=== PATIENT | female | born 1980 | race Caucasian/White ===

== ENCOUNTER → 2019-10-13 11:03 | Outpatient (CLI) | payer OTHER, SELFPAY ==
--- NOTE | ~2019-10-13 | MM_ITS ---
EXAMINATION: MM screening martha BI w riddhi HISTORY: Screening mammogram TECHNIQUE: Bilateral rotated lateral cc views. Craniocaudal and mediolateral oblique 3-D tomosynthesi s images were obtained and synthetic 2-D images were generated. CAD analysis was submitted and interp reted. COMPARISON: 09/11/2018 bilateral digital screening mammogram BREAST PARENCHYMAL COMPOSITION: There are scattered areas of fibroglandular density. FINDINGS: There is no evidence of suspicious mass, calcification, or architectural distortion to sugg est malignancy in either breast. There has been no suspicious interval change. IMPRESSION: 1. No mammographic evidence of malignancy. 2. Recommend routine screening mammography in one year. BI-RADS Category 1: Negative Reviewed, dictated and finalized at location A. ING AIDE
== END ==
PROVIDERS: PCP Obstetrics & Gynecology; Visit Provider Obstetrics & Gynecology
DX: Z12.31 Encounter for screening mammogram for malignant neoplasm of breast (principal)
CPT/HCPCS: 77063; 77067

== ENCOUNTER → 2021-02-21 10:28 | Outpatient (CLI) | payer OTHER, SELFPAY ==
--- NOTE | ~2021-02-21 | MM_ITS ---
EXAMINATION: MM screening martha BI w riddhi HISTORY: Screening mammogram TECHNIQUE: Craniocaudal and mediolateral oblique 3-D tomosynthesis images were obtained and synthetic 2-D images were generated. Bilateral rotated lateral cc views. CAD analysis was submitted and interp reted. COMPARISON: 10/13/2019, 09/11/2018 bilateral digital screening mammogram examinations BREAST PARENCHYMAL COMPOSITION: There are scattered areas of fibroglandular density. FINDINGS: There is no evidence of suspicious mass, calcification, or architectural distortion to sugg est malignancy in either breast. There has been no suspicious interval change. IMPRESSION: 1. No mammographic evidence of malignancy. 2. Recommend routine screening mammography in one year. BI-RADS Category 1: Negative Reviewed, dictated and finalized at location A.
== END ==
PROVIDERS: PCP Family Medicine; Visit Provider Obstetrics & Gynecology
DX: Z12.31 Encounter for screening mammogram for malignant neoplasm of breast (principal)
CPT/HCPCS: 77063; 77067

== ENCOUNTER → 2022-08-06 08:42 | Outpatient (CLI) | payer OTHER, SELFPAY ==
--- NOTE | ~2022-08-06 | MMUS_ITS ---
EXAMINATION: MM diagnostic martha RT w riddhi, US breast RT limited HISTORY: Right breast asymmetry on screening mammogram TECHNIQUE: Additional 3-D tomosynthesis images of the right breast were performed and synthetic 2-D i mages were generated. CAD analysis was submitted and interpreted. High resolution limited right breas t ultrasound was performed. COMPARISON: 07/03/2022, 02/21/2021, 10/13/2019, 09/11/2018 FINDINGS: MAMMOGRAPHIC FINDINGS: There is a return to baseline fibroglandular appearance with spot compression of the right breast in the area questioned on screening mammogram. ULTRASOUND: There is no evidence of focal abnormal solid or cystic mass in the vicinity of the mammographic findi ng in question. IMPRESSION: 1. No mammographic or sonographic evidence of malignancy. 2. Recommend routine screening mammography in one year. BI-RADS Category 1: Negative Reviewed, dictated and finalized at location A. CONSULTING DIRECTOR IMPRESSION: 1. No mammographic or sonographic evidence of malignancy. 2. Recommend routine screening mammography in one year. BI-RADS Category 1: Negative
== END ==
PROVIDERS: PCP Family Medicine
DX: R92.8 Other abnormal and inconclusive findings on diagnostic imaging of breast (principal); R92.2 Inconclusive mammogram
CPT/HCPCS: 76642; 77061; 77065; G0279

== ENCOUNTER 2023-07-01 07:00 | Outpatient (NON) | payer OTHER, SELFPAY | END 2023-07-01 07:01 | disposition home or self-care (01) | LOC: ANHLAB 07-02 14:39 | PROVIDERS: PCP Family Medicine; Visit Provider Nurse Practitioner | DX: D48.5 Neoplasm of uncertain behavior of skin (principal) | CPT/HCPCS: 88305 ==

== ENCOUNTER → 2023-07-08 12:11 | Outpatient (CLI) | payer OTHER, SELFPAY ==
--- NOTE | ~2023-07-08 | MM_ITS ---
EXAMINATION: MM screening martha BI w riddhi HISTORY: Screening TECHNIQUE: Craniocaudal and mediolateral oblique 3-D tomosynthesis images were obtained and synthetic 2-D images were generated. CAD analysis was submitted and interpreted. COMPARISON: Comparison to multiple prior studies sequentially, with oldest reviewed study dated 09/11. BREAST PARENCHYMAL COMPOSITION: There are scattered areas of fibroglandular density. FINDINGS: There is no evidence of suspicious mass, calcification, or architectural distortion to sugg est malignancy in either breast. There has been no suspicious interval change. IMPRESSION: 1. No mammographic evidence of malignancy. 2. Recommend routine screening mammography in one year. BI-RADS Category 1: Negative Reviewed, dictated and finalized at location A. OFF WORKER
== END ==
PROVIDERS: PCP Family Medicine; Visit Provider Obstetrics & Gynecology
DX: Z12.31 Encounter for screening mammogram for malignant neoplasm of breast (principal)
CPT/HCPCS: 77063; 77067

== ENCOUNTER 2024-07-13 11:57 | Outpatient (CLI) | payer OTHER, SELFPAY ==
--- NOTE | ~2024-07-13 | MM_ITS ---
EXAMINATION: MM screening martha BI w riddhi HISTORY: Screening mammogram TECHNIQUE: Craniocaudal and mediolateral oblique 3-D tomosynthesis images were obtained and synthetic 2-D images were generated. CAD analysis was submitted and interpreted. COMPARISON: 07/08/2023, 07/03/2022, 02/21/2021, 10/13/2019 BREAST PARENCHYMAL COMPOSITION:Not Dense. There are scattered areas of fibroglandular density. FINDINGS: No suspicious mass, calcification, or architectural distortion are identified in either stephanie ast to suggest malignancy. There has been no suspicious interval change. IMPRESSION: No mammographic evidence of malignancy. Recommend routine screening mammography in one year. BI-RADS Category 1: Negative Reviewed, dictated and finalized at location . COORDINATOR
== END 2024-07-13 11:58 | disposition home or self-care (01) ==
LOC: MICIMG 11:58
PROVIDERS: PCP Family Medicine; Visit Provider Obstetrics & Gynecology
DX: Z12.31 Encounter for screening mammogram for malignant neoplasm of breast (principal)
CPT/HCPCS: 77063; 77067

== ENCOUNTER 2024-08-28 09:29 | Emergency (ER) | payer OTHER, SELFPAY ==
[2024-08-28 09:52] VITALS: BP 99/63; PULSE 86; RESP 16; TEMP 36.4; O2SAT 99
--- NOTE | 2024-08-28 10:45 | ED_ITS ---
HPI - Skin/Abscess/Foreign Bdy General Chief complaint: Skin/Abscess/Foreign Body Stated complaint: rash/hives Time Seen by Provider: 08/28/24 10:18 Source: patient and RN notes reviewed Mode of arrival: ambulatory Limitations: no limitations History of Present Illness HPI narrative: Patient presents today complaining of severely pruritic rash to the bilateral forearms, dorsums of the feet, bilateral flanks, groin. She has tried hydrocortisone cream with some mild relief. She finished course of Bactrim this morning for will insist. This is the 1st time she has taking this medication. Denies facial swelling, shortness of breath, difficulty swallowing. Related Data Home Medications ?Medication ?Instructions ?Recorded ?Confirmed ?Last Taken ?Type fluticasone propionate 50 1 spray intranasal DAILY 03/19/22 08/28/24 Unknown History mcg/actuation nasal spray,suspension chlorthalidone 25 mg tablet 25 mg PO DAILY 04/09/23 08/28/24 Unknown History losartan 100 mg tablet 100 mg PO DAILY 04/09/23 08/28/24 Unknown History Allergies Allergy/AdvReac Type Severity Reaction Status Date / Time No Known Allergies Allergy Unknown Verified 08/28/24 09:43 Review of Systems Review of Systems: CONSTITUTIONAL: Denies body aches, fever, chills, or sweats. EYES: Denies visual changes, redness, or discharge. ENT: Denies rhinorrhea, congestion, sore throat, or otalgia. CARDIOVASCULAR: Denies chest pain, palpitations, or edema. RESPIRATORY: Denies cough or dyspnea. GASTROINTESTINAL: Denies abdominal pain, nausea, vomiting, or diarrhea. GENITOURINARY: Denies dysuria or hematuria. SKIN: Pruritic rash MUSCULOSKELETAL: Denies back pain, joint pain, or myalgia. NEUROLOGIC: Denies headache, numbness, tingling, or weakness. PSYCH: Denies depression or anxiety. [facility] Past Medical History Medical History Hypertension (~2021) rx meds Screening mammogram, encounter for Headache Gestational hypertension Surgical History Surgical History History of tonsillectomy Delivery by section History of gynecological procedure (02/18/20) mirena iud insertion Family History Family History Mother Family history of malignant melanoma Social History Social History Smoking status: Never smoker Alcohol intake: never Substance use: never Substance use type: does not use Lack of Transportation: No Lack of Food: Never True Current Housing: I Have Housing Concerned About Future Housing: No Difficulty Paying Gas/Electric Bills: No Difficulty Paying for Meds: No Currently Unemployed: No Education: Master's Degree or Higher Difficulty w/ Childcare or Family Care: No Living arrangements: other Additional living arrangements comments: Occupation/Education: occupation Additional occupation/education comments: accounts payable Gender identity (if verbalized by the patient): Female Sexual Orientation (if Verbalized by the Patient): Straight or Heterosexual Comments At time of signature, I have reviewed and agree with nursing past medical, surgical, social and family history unless otherwise noted. Please see nursing chart for further information. There is no relevant family history pertinent to the presenting complaint Exam Narrative: GENERAL: Well-appearing, well-nourished, and in no acute distress. HEAD: Normocephalic, atraumatic. EYES: EOMI. No redness or drainage. Conjunctivae normal. ENT: Mucous membranes pink and moist. No facial swelling noted. NECK: Normal AROM. CHEST: No respiratory distress. EXTREMITIES: Normal range of motion. No edema. SKIN: Warm, dry. Capillary refill normal. Normal skin turgor. + coalesced tiny urticarial lesions spread over the bilateral forearms, flanks, feet, groin. No induration, drainage, pustule NEURO: No focal deficits. Alert and oriented x3. Gait steady. PSYCH: Normal affect. No signs of depression or anxiety. Course Course Level of Care: Express Care Visit Vital Signs Vital signs: Vital Signs Temperature 97.6 F 08/28/24 09:52 Pulse Rate 86 08/28/24 09:52 Respiratory Rate 16 08/28/24 09:52 Blood Pressure 99/63 L 08/28/24 09:52 Pulse Oximetry 99 08/28/24 09:52 Temperature 97.6 F 08/28/24 09:52 Pulse Rate 86 08/28/24 09:52 Respiratory Rate 16 08/28/24 09:52 Blood Pressure 99/63 L 08/28/24 09:52 Pulse Oximetry 99 08/28/24 09:52 Reviewed MDM - Skin/Abscess/Foreign Bdy MDM Narrative Medical decision making narrative: Patient will be treated with prednisone for pruritic rash, antibiotic rash versus contact dermatitis. Differential Diagnosis Differential diagnosis: Likely viral exanthem, dermatophytosis, urticaria, cellulitis, eczema, impetigo and contact dermatitis Critical Care Time Critical Care Time Critical Care Time: No Discharge Plan Discharge Clinical Impression: Dermatitis Patient Disposition: Home, Self-Care Condition: Stable Instructions: Contact Dermatitis (ED) Additional Instructions: Please take the prednisone as directed. Start an antihistamine such as Zyrtec, Claritin, or Flor for itching. Follow-up with your PCP in 5 days if symptoms are not improving. Patient Language: Tuvaluan Prescriptions: New prednisone 20 mg tablet 40 mg PO DAILY 5 Days Qty: 10 0RF No Action losartan 100 mg tablet 100 mg PO DAILY chlorthalidone 25 mg tablet 25 mg PO DAILY sulfamethoxazole-trimethoprim [Bactrim DS] 800-160 mg tablet 1 tablet PO Q12H Qty: 20 0RF fluticasone propionate 50 mcg/actuation spray,suspension 1 spray intranasal DAILY Rx Instructions: administer into each nostril Follow-up/Referrals: Harms,Jacob Castro M.D. [Primary Care Provider] - Time of Disposition: 10:49
== END 2024-08-28 10:51 | disposition home or self-care (01) ==
PROVIDERS: Emergency Provider Nurse Practitioner; PCP Family Medicine
DX: L30.9 Dermatitis, unspecified (principal); I10 Essential (primary) hypertension
CPT/HCPCS: 99213; G0463

== ENCOUNTER 2025-07-20 10:07 | Outpatient (CLI) | payer OTHER, SELFPAY ==
--- NOTE | ~2025-07-20 | MM_ITS ---
EXAMINATION: screening [facility] BI w riddhi INDICATION: Asymptomatic, referred for screening mammogram COMPARISON: 07/13/2024 through 09/11/2018 TECHNIQUE: Digital Breast Tomosynthesis CC, MLO views of Both breasts were obtained with computer-aided detection to assist in interpretation of the study. FINDINGS: There are scattered areas of fibroglandular density. There is an asymmetry seen on the MLO view in the Inferior left breast at middle third. Elsewhere, there are no mammographic features of malignancy. IMPRESSION: 1. Left breast Asymmetry. 2. No evidence of malignancy in the Right breast. RECOMMENDATION: Left breast Diagnostic mammogram with true lateral, appropriate spot compression views and an ultrasound if needed. BI-RADS Category 0: Incomplete: Needs additional imaging evaluation. Reviewed, dictated and finalized at location B. CAGER IMPRESSION: 1. Left breast Asymmetry. 2. No evidence of malignancy in the Right breast. RECOMMENDATION: Left breast Diagnostic mammogram with true lateral, appropriate spot compressio n views and an ultrasound if needed. BI-RADS Category 0: Incomplete: Needs additional imaging evaluation.
== END 2025-07-20 10:08 | disposition home or self-care (01) ==
LOC: MICIMG 10:08
PROVIDERS: PCP Family Medicine; Visit Provider Obstetrics & Gynecology
DX: Z12.31 Encounter for screening mammogram for malignant neoplasm of breast (principal); R92.8 Other abnormal and inconclusive findings on diagnostic imaging of breast
CPT/HCPCS: 77063; 77067

== ENCOUNTER 2025-08-29 12:59 | Outpatient (CLI) | payer OTHER, SELFPAY ==
--- NOTE | ~2025-08-29 | US_ITS ---
EXAMINATION: US breast LT limited HISTORY: Additional imaging TECHNIQUE: Craniocaudal and mediolateral oblique 3-D tomosynthesis images were obtained and synthetic 2-D images were generated. CAD analysis was submitted and interpreted. Grayscale sonography over the area(s) of interest with color Doppler if there is a finding. COMPARISON: July 20 and other prior studies. BREAST PARENCHYMAL COMPOSITION: Dense: The breasts are heterogeneously dense MAMMOGRAM FINDINGS: An asymmetry persists inferiorly on the ML view. It is estimated to be at 6:00 or perhaps the lower inner quadrant. There are no suspicious calcifications. No unexplained architectural distortion is seen. There are no skin or nipple abnormalities identified. There is no adenopathy seen on the images submitted. ULTRASOUND FINDINGS: Sonography through the 9:00 position demonstrates a cluster of small cysts versus 2 adjacent bilobed cysts. These account for the mammographic appearance. One structure with thick septations is considered less likely. The maximum conglomerate measurement is 7 mm. IMPRESSION: A group of cysts versus a complex cyst with solid components account for the mammographic finding. Six-month follow-up left mammogram and left breast ultrasound are recommended. BI-RADS 3 - Probably benign - short-term follow-up is recommended. Reviewed, dictated and finalized at location A. ODS ANALYST DATA PROCESSING IMPRESSION: A group of cysts versus a complex cyst with solid components account for the ma mmographic finding. Six-month follow-up left mammogram and left breast ultrasou nd are recommended. BI-RADS 3 - Probably benign - short-term follow-up is recommended.
--- OUTSIDE RECORDS SUMMARY | 2025-08-29 13:11 | XMS_ITS | Clinical Summary ---
Author Organization [facility] Address [address] [place] [address] Care Team Providers Care Energy Manager Name Role Phone Jacob Matthews MD Unavailable [phone] Alondra Rothman MD Primary Care Provider Source Comments [facility],non-owned Affiliates and Associated Physician Practices is amultiple site organization consisting of ambulatory clinics and hospital sitesin [place], [place], [place]. This disclosure is being madepursuant to the Care Everywhere program and may not contain all information available regarding this patient. 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 05/10/2014 Chronic hypertension complic ating or reason for care during 05/10/2014 H/O pre-eclampsia in prior , currently 05/10/2014 Overview (05/10/2014): sPreE in G1 with IOL at 34w5d Complicated by HELLP and pulmonary edema 24 hour urine collected and patient started on ASA at 10w this Abnormal Pap smear of cervix 05/10/2014 Overview (05/10/2014): LSIL 2009 with colpo ALISE 1 ASCUS 11/07/10 NEG pap 04/30/13 Social History Tobacco Use Types Packs/Day Years Used Date Smoking Tobacco: Never Assessed Comments No Sex and Gender Information Value Date Recorded Sex Assigned at Not on file Legal 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 Gender Identity Not on file Sexual Orientation Not on file Plan of Treatment Health Maintenance Due Date Last Done Comments COLOGUARD (AGES 45-75) - COL ON CA SCREENING 1978 COLON MONITORING 1978 COLONOSCOPY - COLON CA SCREENING 1978 CT COLONOGRAPHY - COLON CA SCREENING 1978 Colorectal Cancer Screening 1978 FIT - COLON CA SCREENING 1978 FLEX SIG - COLON CA SCREENING 1978 LIPID TESTING 1978 MAMMOGRAM 1978 HIV SCREENING 1993 HEPATITIS C SCREENING 01/10/1996 DTAP/TDAP/TD VACCINES (1 - Tdap) 1997 HEPATITIS B VACCINE (1 of 3 - 19+ 3-dose series) 1997 PAP SMEAR 1999 DEPRESSION SCREENING 09/01/2024 COVID-19 VACCINE (1 - 2024-2 6 season) 2025 INFLUENZA VACCINE (#1) 2025 ZOSTER VACCINE (1 of 2) 01/15/2028 HIB VACCINE Aged Out No longer eligi ble based on patient's age to complete this topic HPV VACCINE Aged Out No longer eligi ble based on patient's age to complete this topic MENINGOCOCCAL (Group B) VACC INE SHARED DECISION-MAKING Aged Out No longer eligibl e based on patient's age to complete this topic MENINGOCOCCAL GROUPS A/C/Y/W VACCINE Aged Out No longer eligible b ased on patient's age to complete this topic PNEUMOCOCCAL VACCINE Aged Out No long er eligible based on patient's age to complete this [place] [address] [place] [address] [facility] Care Teams Energy Manager Relationship Specialty Start Date End Date Alond[place] [address] PCP - General Obstetrics and Gynecology 05/02/14 [place] [address] Internal Medicine 05/09/14
--- OUTSIDE RECORDS SUMMARY | 2025-08-29 13:11 | XMS_ITS | Clinical Summary ---
Author Organization [facility] Address [address] [place] [address] Care Team Providers Care Human Relations Manager Name Role Phone Unavailable Primary Care Provider Unavailabl e Allergies No known active allergies Medications hydrOXYzine HCL (ATARAX) 25 mg tablet Take 1 tablet (25 mg total) by mouth 2 (two) times a day as needed for anxiety 90 Tablet 4 01/29/2025 11:09 AM CDT 01/21/2025 Active metroNIDAZOLE (MetrogeL) 1 % Gel Apply a small film to face once nightly. 60 Gram 03/23/2025 9:48 AM CDT 03/22/2025 Active triamcinolone acetonide (KENALOG) 0.1 % Cream Apply two times daily above eyebrows as directed. 45 Gram 03/23/2025 9:48 AM CDT 03/22/2025 Active doxycycline hyclate (VIBRAMYCIN) 50 mg Capsule Take 1 Capsule (50 mg) by mouth daily WITH A FULL MEAL. 30 Capsule 3 07/13/2025 9:56 AM CABLE MECHANIC 04/19/2025 Active Bimatoprost (Latisse) 0.03 % Drops with Applicator Apply to eyebrows at night 5 mL 3 05/18/2025 8:39 AM CDT 04/19/2025 Active doxycycline hyclate (VIBRAMYCIN) 100 mg tablet Take 1 tablet daily with a full meal. Do not lie down for 30 min after taking it. 30 Tablet 3 08/12/2025 10:27 AM CABLE MECHANIC 08/10/2025 Active hydrocortisone (HYTONE) 2.5 % Cream Apply to rash on face twice daily until resolved. 30 Gram 3 08/12/2025 10:27 AM CABLE MECHANIC 08/10/2025 Active hydroxychloroqu ine (PLAQUENIL,SOVU NA) 200 mg tablet Take 1 Tablet (200 mg) by mouth daily. 30 Tablet 3 08/12/2025 10:27 AM CABLE MECHANIC 08/10/2025 Active Encounters Date Type Department Care Team Description 08/16/2025 External Device Data [facility] ABSTRACTION Provider, Abstract 07/06/2025 External Device Data [facility] ABSTRACTION Provider, Abstract 06/29/2025 External Device Data [facility] ABSTRACTION Provider, Abstract 06/21/2025 External Device Data [facility] ABSTRACTION Provider, Abstract from Last 3 Months Social History Tobacco Use Types Packs/Day Years Used Date Smoking Tobacco: Never Assessed Comments Unknown Sex and Gender Information Value Date Recorded Sex Assigned at Not on file Legal Sex Female 11:04 AM CABLE MECHANIC Gender Identity Not on file Sexual Orientation Not on file Plan of Treatment Health Maintenance Due Date Last Done Comments DTAP/TDAP/TD VACCINES (1 - Tdap) 1997 HEPATITIS B VACCINES (1 of 3 - 19+ 3-dose series) 12/30 HPV/Cotest (21-29) 1999 CERVICAL CANCER SCREENING 01/15/2008 HPV/Cotest (30-65) 01/15/2008 PAP SMEAR 01/15/2008 BREAST CANCER SCREENING 2018 COLORECTAL SCREENING 2023 Colorectal Cancer Screening 2023 FIT-DNA Q 3 years 2023 FIT/FOBT Q 1 year 2023 Flex Sig/CT Colonography Q 5 years 2023 INFLUENZA VACCINE (#1) 2025 Insurance RX GENERIC COMMERCIAL Commercial RX [employer] (INTERNAL) [facility]
--- OUTSIDE RECORDS SUMMARY | 2025-08-29 13:11 | XMS_ITS | Clinical Summary ---
Author Organization [facility] Address [address] [place] [address] Care Team Providers Care Dado Operator Name Role Phone Jacob Matthews MD Primary Care Provider [phone] Allergies Active Allergy Reactions Criticality Noted Date Comments Sulfamethoxazole-Trimethoprim Itching,Rash Medium 08/03 Medications fluticasone (FLONASE) 50 mcg/actuation nasal spray inhale 1 spray by Intranasal route every 12 hours in each nostril 3 Bottle 3 3 Active levonorgestreL (MIRENA) IUD Mirena 20 mcg/24 hours (6 yrs) 52 mg intrauterine device Take 1 device by intrauterine route. Active triamcinolone (KENALOG) 0.1 % ointment APPLY SMALL AMOUNT TOPICALLY TO THE AFFECTED AREA TWICE DAILY. DO NOT USE MORE THAN 2 WEEKS 3 Active cyclobenzaprine (FLEXERIL) 5 mg tabletIndicatio ns:Acute left-sided low back pain with left-sided sciatica Take 1 tablet (5 mg total) by mouth 3 (three) times a day as needed for muscle spasms 30 tablet 4 Active losartan (COZAAR) 100 mg tabletIndicatio ns:Hypertension , essential TAKE 1 TABLET DAILY 90 tablet 3 4 Active chlorthalidone (HYGROTON) 25 mg tabletIndicatio ns:Hypertension , essential TAKE 1 TABLET DAILY 90 tablet 3 4 Active hydrOXYzine (ATARAX) 25 mg tabletIndicatio ns:Situational anxiety Take 1 tablet (25 mg total) by mouth 2 (two) times a day as needed for anxiety 90 tablet 4 Active Active Problems Problem Noted Date Diagnosed Date Acute left-sided low back pain with left-sided s ciatica 07/23/2024 Assessment & Plan (07/23/2024 9:27 AM AUTOMATED EQUIPMENT ENGINEER TECHNICIAN): Has been experiencing low back pain for the 4 to 6 weeks. No injury that she is aware of. She has also experiencing some sciatic type pain in posterior left thigh intermittently. States she plans to see chiropractor later today. Encouraged gentle stretching and obdfz-aw-sahhnw exercises. Suggested NSAID use, 6-800 mg of ibuprofen 2-3 times per day for the next 1 week. Will also try a muscle relaxer, reviewed medication side effects and scheduling. Follow up if no improvement and will plan for physical therapy referral. Lipid screening 07/23/2024 Assessment & Plan (01/21/2025 9:21 AM CDT): Reviewed labs with patient, fasting. Slightly elevated triglyceride level. Will continue to monitor. Assessment & Plan (07/23/2024 9:37 AM AUTOMATED EQUIPMENT ENGINEER TECHNICIAN): Results for orders placed or performed in visit on 07/23/24 POCT lipid panel Collection Time: 07/23/24 9:00 AM Result Value Ref Range Cholesterol, POC 215 mg/dL HDL, POC 39 mg/dL Triglycerides, POC 196 mg/dL LDL Cholesterol POC 136 mg/dL Chol/HDL Ratio, POC 5.5 Non-HDL Cholesterol, POC 175 mg/dL Cholesterol Total, POC 215 mg/dL Acute diarrhea 05/05/2024 Assessment & Plan (05/05/2024 9:40 AM CDT): Benign exam today. Stool cultures, labs ordered. Reviewed brat diet. Recommend probiotics. Reviewed red flags. Will monitor response. 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 Previously prescribed hydroxyzine PRN, patient did not start medication but would like to do so. Refilled hydroxyzine 25 mg twice daily, discussed taking medication at HS to help with sleep, can take during the day as well. Does not feel stressed throughout the year. Assessment & Plan (01/20/2024 9:01 AM CDT): Will start prescription hydroxyzine 25 mg b.i.d. p.r.n.. Patient denies any depressive symptoms. Symptoms are largely situational related to end of school year commitments, sporting events and graduation. Will monitor response to hydroxyzine and notify if any new or worsening symptoms. Briefly discussed use of buspirone if needed. Thyroid disorder 01/20/2024 Assessment & Plan (07/23/2024 9:30 AM AUTOMATED EQUIPMENT ENGINEER TECHNICIAN): [place] thyroid 30 mg tablet daily. Managed by functional medicine. Lab Results Component Value Date TSH 1.47 05/05/2024 TSH 2.31 05/17/2022 TSH 1.92 05/16/2020 Assessment & Plan (05/05/2024 9:39 AM CDT): TSH ordered. Will plan accordingly once results are received. She is following with functional health medicine. Assessment & Plan (01/20/2024 9:00 AM CDT): Managed by functional medicine specialist, continues [place] thyroid 30 mg daily. Patient states that she had her thyroid function test lab work completed this morning, will review results once received from patient. Discussed concerns/possibility that thyroid may be contributing to increased anxiety if overtreated. BMI 28.0-28.9,adult 07/15/2023 Assessment & Plan (01/21/2025 9:21 AM CDT): BMI appropriate for patient. Patient with active and healthy lifestyle. Assessment & Plan (07/23/2024 9:28 AM AUTOMATED EQUIPMENT ENGINEER TECHNICIAN): Encouraged healthy diet and regular physical activity. Assessment & Plan (01/20/2024 8:59 AM CDT): Patient was active and healthy lifestyle, BMI is appropriate for patient. Assessment & Plan (07/15/2023 12:52 PM AUTOMATED EQUIPMENT ENGINEER TECHNICIAN): Stable; BMI is appropriate for patient. Encounter for screening colonoscopy 06/06/2023 Physical exam, annual 01/07/2023 Assessment & Plan (01/21/2025 9:19 AM CDT): Preventative exam; reviewed screenings and vaccinations. Current on mammogram. Following with juice scaleman annually. Assessment & Plan (01/20/2024 8:58 AM CDT): Preventative exam; reviewed screenings and vaccinations. -colonoscopy completed 10/2023, repeat in 5 years -due for mammogram 07/2024 -following with juice scaleman annually, current on Pap Assessment & Plan (01/07/2023 9:56 AM CDT): Preventive exam; reviewed recommended preventive screenings and vaccinations. Encourage annual flu vaccine. Wear sunscreen/protective clothing when outdoors. -screening colonoscopy ordered -last mammogram 08/2022 -Following with CREW SUPERVISOR annually. Encounter for colorectal cancer screening 2022 Assessment & Plan (07/15/2023 8:27 AM AUTOMATED EQUIPMENT ENGINEER TECHNICIAN): C scope scheduled for 10/07/23 Assessment & Plan (01/07/2023 9:58 AM CDT): Referral to GI for screening c-scope. No family history of colon cancer. Hypertension, essential 05/30/2022 Assessment & Plan (01/21/2025 9:18 AM CDT): Stable; blood pressure well controlled, 118/76 in office today. Patient is taking losartan 100 mg daily and chlorthalidone 25 mg tablet daily, no changes made today. Patient was active and healthy lifestyle. Assessment & Plan (07/23/2024 9:27 AM AUTOMATED EQUIPMENT ENGINEER TECHNICIAN): Blood pressure is well controlled on current medication regimen, no changes made today. Continue losartan 100 mg daily and chlorthalidone 25 mg daily. Assessment & Plan (05/05/2024 9:39 AM CDT): Normotensive. Continue chlorthalidone, losartan. Will continue to monitor. Assessment & Plan (01/20/2024 8:58 AM CDT): Blood pressure is well controlled, 116/78. Continue losartan 100 mg and chlorthalidone 25 mg daily. Denies any chest pain, shortness and breath, headaches or visual disturbance. Continue present management. Periodically checking at home, no elevated readings with home BP cuff. Assessment & Plan (07/15/2023 8:28 AM AUTOMATED EQUIPMENT ENGINEER TECHNICIAN): Blood pressure is well controlled, no changes made today. Continue losartan 100 mg daily and chlorthalidone 25 mg daily. Assessment & Plan (01/07/2023 9:57 AM CDT): Condition is at goal Ordered labs, encourage healthy diet and regular exercise. Continue losartan 100 mg daily and chlorthalidone 25 mg daily. Assessment & Plan (05/30/2022 8:03 AM CDT): Condition is improving, but not at goal Discussed/ordered labs, encouraged healthy, low carbohydrate lifestyle and at least 150min/week of exercise, continue on losartan 100 mg daily and will add chlorthalidone 25 mg tablet once daily. Patient to complete echocardiogram. To continue checking blood pressure at home at least 2 hours after taking medication, will send message through [employer] or call office to notify of blood pressure readings. Scheduled for follow-up in 1 month. Reviewed red flags warranting immediate evaluation. Refused influenza vaccine 09/24/2019 Immunizations Immunization Administration Dates Next Due Hep B Vaccine 02/20/2000,01/04/2000 Influenza, Trivalent, IM (MDV) 07/18/2014 Influenza, Trivalent, Preser vative Free, Intramuscular 07/18/2014 Influenza, Unspecified 07/23/2024(Deferr ed: Patient Refused),06/01/2024(Deferred: Patient Refused),05/05/2024(Deferred: Patient Refused),01/20/2024(Deferred: Patient Refused),07/15/2023(Deferred: Patient Refused),06/01/2023(Deferred: Patient Refused),06/01/2023(Deferred: Patient Refused),06/19/2022(Deferred: Patient Refused),06/01/2022(Deferred: Patient Refused),06/01/2022(Deferred: Patient Refused),06/01/2022(Deferred: Patient Refused),06/01/2022(Deferred: Patient Refused),05/30/2022(Deferred: Patient Refused),10/09/2021(Deferred: Patient Refused),06/01/2021(Deferred: Patient Refused),06/01/2021(Deferred: Patient Refused),10/04/2020(Deferred: Patient Refused),09/01/2020(Deferred: Patient Refused),09/01/2019(Deferred: Patient Refused) Moderna SARS-CoV-2 Monovalen t Vaccination (12+ YRS) 11/18/2020,10/21/2020 Tdap 10/12/2014,10/11/2014 Surgical History Surgery Date Site/Laterality Comments TONSILLECTOMY 1992 Tonsilectomy SECTION COLONOSCOPY 10/07/2023 1st Medical History Medical History Date Comments History of multiple allergies Al lergies Hx Other Medical 07/2009 HELLP syndrome HELLP syndrome 07/2009 Hypothyroidism Family History Medical History Relation Name Comments Other Brother 2 Alive and well; Diabetes Father Hypertension Father Other Father Alive and well; Melanoma Mother Relation Name Status Comments Brother 1 Alive Brother 2 Father Alive Mother Alive Sister Alive Social History Tobacco Use Types Packs/Day Years Used Date Smoking Tobacco: Never Smokeless Tobacco: Never Tobacco Cessation:Counseling Given: Not Answered Alcohol Use Standard Drinks/Week Comments No 0 (1 standard drink = 0.6 oz pur e alcohol) AUDIT-C Answer Date Recorded Q1: How often do you have a drink containing alcohol? Never 10/07/2023 Q2: How many drinks containi ng alcohol do you have on a typical day when you are drinking? Patient does not drink Q3: How often do you have si x or more drinks on one occasion? Never 10/07/2023 PHQ-2 Answer Date Recorded PHQ-2 Total Score (If total score is 3 or more points, staff should administer the PHQ-9) 0 01/21/2025 Personal Safety Answer Date Recorded Have you ever been in or are you currently in a harmful physical or emotional relationship or is someone making you feel afraid or unsafe? Denies 10/07/2023 Comments Unknown Sex and Gender Information Value Date Recorded Sex Assigned at Not on file Legal Sex Female 6:11 PM AUTOMATED EQUIPMENT ENGINEER TECHNICIAN Gender Identity Not on file Sexual Orientation Not on file Obstetrics History Para Term AB IAB SAB Ectopic Multiple Livin g Live Births 2 2 2 Date Outcome GA Total Labor Labor/2nd/3rd Weight Sex Type Anes PTL Betty A1 A5 Name Clin Term Term Last Filed Vital Signs Vital Sign Reading Time Taken Comments Blood Pressure 118/76 01/21/2025 8:25 AM CDT Pulse 72 01/21/2025 8:25 AM CDT Temperature 36.7 C (98.1 F) 01/21/2025 8:25 AM CDT Respiratory Rate 16 01/21/2025 8:25 AM CDT Oxygen Saturation 99% 01/21/2025 8:25 AM CDT Inhaled Oxygen Concentration - - Weight 78.5 kg (173 lb) 01/21/2025 8:25 AM CDT Height 165.1 cm (5' 5) 01/21/2025 8:25 AM CDT Body Mass Index 28.79 01/21/2025 8:25 AM CDT Plan of Treatment Health Maintenance Due Date Last Done Comments Cervical Cancer Screening 1980 Hepatitis C Screening 1980 DTaP/Tdap/Td Vaccine (3 - Td or Tdap) 10/12/2024 10/12/2014, 10/11/2014 Covid-19 Vaccine ( - 2024- season) 2025 11/18/2020, 10/21/2020 Influenza Vaccine (#1) 2025 07/18/2014, 2013 Depression Screening 01/21/2026 01/21/2025, 01/20/2024, 07/15/2023, Additional history exists Regular Well Visit/Exam 18-64 01/21/2026 01/21/2025, 01/20/2024, 01/07/2023, Additional history exists Breast Cancer Screening-Mammogram 07/20/2026 07/20/2025, 07/13/2024, 07/08/2023, Additional history exists Colon Cancer Screening-Colonoscopy 10/07/2028 10/07/2023 Hepatitis B Screening Completed 02/20/2000, 000 Pneumococcal vaccine <65 Aged Out No longer eligible based on patient's age to complete this topic Procedures Procedure Name Priority Date/Time Associated Diagnosis Comments SCREENING MAMMOGRAM BILATERAL W CARLOS Schedule Routine, Read Routine (OP Routine) 07/20/2025 3:37 PM AUTOMATED EQUIPMENT ENGINEER TECHNICIAN COLONOSCOPY 10/07/2023 7:45 AM AUTOMATED EQUIPMENT ENGINEER TECHNICIAN from Last 3 Months or Most Recently Relevant to Health Maintenance Results * Screening Mammogram Bilateral W Carlos (07/20/2025 3:37 PM AUTOMATED EQUIPMENT ENGINEER TECHNICIAN) Anatomical Region Laterality Modality Breast Bilateral Mammography us Historical Provider MD PRUITT MAMMO PROCEDURES Lauren l Result * COLONOSCOPY (10/07/2023 7:45 AM AUTOMATED EQUIPMENT ENGINEER TECHNICIAN) Anatomical Region Laterality Modality Other Narrative Procedure Note Osman Lantigua MD - 10/07/2023 7:45 AM CST [facility] Patient Name: Kenya Villanueva Procedure Date: 10/07/2023 7:45 AM Date of : 1980 Admit Type: Outpatient Age: 43 Gender: Female Attending MD: Osman Lantigua M.D. Room: [facility] END[facility]COPY ROOM 1 Note Status: Finalized Patient Profile: This is a 43 year old female. No family history of colon cancer. No specific GI complaint. Procedure: Colonoscopy Indications: Screening for colorectal malignant neoplasm, Thisis the patient's first colonoscopy Referring MD: Jacob Matthews M.D. Providers: Osman Lantigua M.D. Impression: - Two 10 to 12 mm polyps in the sigmoid colon andin the descending colon, removed with a cold snare. Resected and retrieved. - Four 3 to 4 mm polyps in the rectum, 2 removedwith a cold snare in 2 cauterized with the tip of the snare. Resected and retrieved. Recommendation: - Await pathology results. - Repeat colonoscopy in 3 years for surveillance. Medicines: Monitored Anesthesia Care Complications: No immediate complications. Estimated Blood Loss: Estimated blood loss: none. Procedure: Pre-Anesthesia Assessment: - Prior to the procedure, a History and Physicalwas performed, and patient medications and allergieswere reviewed. The patient's tolerance of previous anesthesia was also reviewed. The risks andbenefits of the procedure and the sedation options and risks were discussed with the patient. All questions were answered, and informed consent was obtained. Prior Anticoagulants: The patient has taken noanticoagulant or antiplatelet agents. ASA Grade Assessment: Per anesthesia note and evaluation. After reviewing the risks and benefits, the patient was deemed in satisfactory condition to undergo the procedure. The benefits, risks and alternatives of theprocedure and sedation were discussed and informed consentwas obtained. All questions were answered. Please referto the signed informed consent document in the medical record. The bowel preparation used was Miralax via split dose instruction. The bowel preparation usedwas bisacodyl tablets via split dose instruction. The scope was passed under direct vision. The Pediatric Colonoscope PCF-H190L [id number] was introducedthrough the anus and advanced to the the cecum, identifiedby appendiceal orifice and ileocecal valve. Thequality of the bowel preparation was excellent. Bowel prepwas administered using a split dose. Findings: The perianal and digital rectal examinations were normal. The cecum appeared normal. The transverse colon and ascending colon appeared normal. Two sessile polyps were found in the sigmoid colon and descendingcolon. The polyps were 10 to 12 mm in size. These polyps were removed with a cold snare. Resection and retrieval were complete. Four sessile polyps were found in the rectum. The polyps were 3 to 4mm in size. Two polyps were removed with a cold snare and the [address] with the tip of the snare. Resection andretrieval were complete. Retroflexion of the rectum was unremarkable. Electronically signed by Osman Lantigua M.D. Osman Lantigua M.D. 10/07/2023 9:10:44 AM Number of Addenda: 0 Note Initiated On: 10/07/2023 7:45 AM Procedure Code(s): --- Professional --- 40724, Colonoscopy, flexible; with removal of tumor(s), polyp(s), or other lesion(s) by snare technique Diagnosis Code(s): --- Professional --- Z12.11, Encounter for screening for malignant neoplasm of colon D12.5, Benign neoplasm of sigmoid colon D12.4, Benign neoplasm of descending colon D12.8, Benign neoplasm of rectum CPT copyright 2020 [employer]. All rights reserved. The codes documented in this report are preliminary and upon ophthalmic technician reviewmay be revised to meet current compliance requirements. Recognized by the [place] [employer] for promoting quality in endoscopy Osman Lantigua MD ENDOSCOPY PROCEDURES Final Result from Last 3 Months or Most Recently Relevant to Health Maintenance Insurance [facility] CHO[facility] PLUS [facility] PLUS Advance Directives For more information, please contact: [phone] * Full Code (Latest Code Status on File) Date Activated Date Inactivated Comments 10/07/2023 7:35 AM 10/07/2023 1:49 PM * Full Code Date Activated Date Inactivated Comments 10/07/2023 7:35 AM 10/07/2023 7:35 AM Care Teams Dado Operator Relationship Specialty Start Date End Date Jacob Matthews MD [address] [place] [address] PCP - General 12/20/13
== END 2025-08-29 13:00 | disposition home or self-care (01) ==
PROVIDERS: PCP Family Medicine; Visit Provider Obstetrics & Gynecology
DX: N64.89 Other specified disorders of breast (principal); R92.8 Other abnormal and inconclusive findings on diagnostic imaging of breast
CPT/HCPCS: 76642; 77061; 77065; G0279